=== PATIENT | female | born 1990 | race Caucasian/White ===

== ENCOUNTER → 2017-12-16 | Outpatient (CLI) | payer MEDICAID ==
[~2017-12-16] MED LIST: DEPO150I IM; ENTEX PO; SULF1TAB47 PO; TUSSSUS PO; VENTAER INH
== END ==
LOC: HPND 09:09
PROVIDERS: ATTEND Obstetrics & Gynecology
DX: O41.02X0 Oligohydramnios, second trimester, not applicable or unspecified (principal); O10.012 Pre-existing essential hypertension complicating pregnancy, second trimester; O98.512 Other viral diseases complicating pregnancy, second trimester; O09.32 Supervision of pregnancy with insufficient antenatal care, second trimester
CPT/HCPCS: 76811